=== PATIENT | female | born 1970 | race Caucasian/White ===

== ENCOUNTER → 2017-10-05 | Outpatient (CLI) | payer OTHER | LOC: RAD 11:42 | DX: M47.892 Other spondylosis, cervical region (principal); M48.02 Spinal stenosis, cervical region; M25.78 Osteophyte, vertebrae ==

== ENCOUNTER → 2018-12-20 | Outpatient (CLI) | payer OTHER | LOC: RAD 12:00 | DX: M54.5 Low back pain (principal); M25.551 Pain in right hip ==

== ENCOUNTER → 2020-11-08 | Outpatient (CLI) | payer OTHER | LOC: ULTRA 10:05 | PROVIDERS: ATTEND Nurse Practitioner | DX: K80.20 Calculus of gallbladder without cholecystitis without obstruction (principal); K76.89 Other specified diseases of liver ==

== ENCOUNTER → 2020-12-23 | Outpatient (CLI) | payer OTHER | LOC: CAT 10:13 | PROVIDERS: ATTEND Nurse Practitioner | DX: K76.89 Other specified diseases of liver (principal); R16.1 Splenomegaly, not elsewhere classified; K80.20 Calculus of gallbladder without cholecystitis without obstruction ==

== ENCOUNTER → 2021-01-17 | Day surgery (SDC) | payer OTHER ==
[~2021-01-17] VITALS: Ht 160 cm; Wt 109.3 kg
[~2021-01-17] MED LIST: COLACE 100 MG100 MG PO; EUTHYROX50 MCG PO; HYDROCODON-ACE1 EAC7 PO; MELOXICAM15 MG PO; MIRALAX17 GM PO; PROZAC20 MG PO; TYLENOL325 MG PO; VITAMIN D21250 MCG PO
[2021-01-17 08:45] VITALS: BP 144/84
[2021-01-17 09:58] LABS: HEMATOCRIT 39.2 % (37.0-47.0); MCH 28.4 pg (26.0-34.0); MCV 85.9 fL (80.0-100.0); RBC 4.57 mil/uL (4.20-5.00); RDW 14.6 % (10.5-14.5)
[2021-01-17 10:18] LABS: CALCIUM 9.5 mg/dL (8.5-10.1); CREATININE 1.1 mg/dL (0.6-1.0); POTASSIUM 3.8 mmol/L (3.5-5.1)
[2021-01-17 10:22] LABS: ALBUMIN 4.2 g/dL (3.4-5.0); TOTAL BILIRUBIN 0.3 mg/dL (0.2-1.0); TOTAL PROTEIN 8.1 g/dL (6.4-8.2)
[2021-01-17 13:13] VITALS: BP 144/84
--- NOTE | 2021-01-21 17:06 | PATH ---
[facility] [place] [address] PATHOLOGY RPT PROCEDURE Name: REYNA PEREZ Room #: [facility] M..#: [id number] Admission: 01/17/21 Date of : 68 Discharge: Report #: [id number] Path Case #: [id number] [facility] Accession Number: [id number] . 01 Material submitted: . gallbladder - GALLBLADDER . 01 Clinical history: . LAPAROSCOPIC CHOLECYSTECTOMY SYMPTOMATIC CHOLELITHIASIS . 02 Diagnosis: Gallbladder, cholecystectomy: - Mild chronic cholecystitis. - Cholelithiasis. - Cholesterolosis. (IUV/db; 01/20/2021) LBQ 01/20/2021 1746 Local . 02 Electronically signed: . Debby Bynum MD, Pathologist NPI- [id number] . 01 Gross description: . Fixative: Formalin Labeled: Gallbladder Specimen received: Intact gallbladder Dimensions: 6.8 x 2.5 x 1.5 cm Serosa: Smith-abraham Lymph node: Not identified Mucosa: Velvety, light abraham Average wall thickness: 0.1 cm Calculi: A single light green, nodular calculus is present Abnormalities: None identified . Maintenance Mechanic Telephone body, fundus, and the cystic duct margin in cassette A1. (CAA; 01/19/2021) QA/[facility] 01/19/2021 1512 Local . 02 Pathologist provided ICD-10: K80.10, K82.4 . 02 CPT . 111617 Specimen Comment: A courtesy copy of this report has been sent to [phone] Specimen Comment: [phone] [address] PATHOLOGY RPT PROCEDURE Name: KELVIN PEREZCEY [facility] Room #: [facility]..#: [id number] Admission: 01/17/21 Date of : 68 Discharge: Report #: [id number] Path Case #: [id number] Specimen Comment: Report sent to / DR MCFARLANE Performed at: [address], [place], [place] [id number] MD Michael Puentes MD Phone: [phone] Performed at: [address] [id number] MD Debby Bynum MD Phone: [phone]
== END | disposition home or self-care (01) ==
LOC: OR 07:25
PROVIDERS: ATTEND Surgery
DX: K80.10 Calculus of gallbladder with chronic cholecystitis without obstruction (principal); K21.9 Gastro-esophageal reflux disease without esophagitis; E03.9 Hypothyroidism, unspecified; F32.9 Major depressive disorder, single episode, unspecified; F41.9 Anxiety disorder, unspecified; Z98.890 Other specified postprocedural states; Z79.899 Other long term (current) drug therapy; Z20.822 Contact with and (suspected) exposure to COVID-19; Z98.51 Tubal ligation status; Z88.0 Allergy status to penicillin; Z88.2 Allergy status to sulfonamides
CPT/HCPCS: 50010; 50101; 50411; 50555; 50558; 52265; 52266; 53307; 53310; 53312; 54022; 54118; 55245; 56462; 56526; 58574; 62110; 62900; 70005